=== PATIENT | female | born 1940 | race African-American/Black ===

== ENCOUNTER 2024-11-12 11:29 | Inpatient (IN) ==
[2024-11-12] MEDS: NITROGLYCERIN 1 GM OINT...G. TD ONE (11:51)
--- NOTE | 2024-11-12 11:56 | Emergency Department Note ---
HPI - General Adult General Chief complaint: Extremity Injury, Lower Stated complaint: SWOLLEN HAND Time Seen by Provider: 11/12/24 11:47 Source: patient and family Source information: patient and daughter Mode of arrival: History of Present Illness HPI narrative: This is a 84 year old female patient that presents to the ER with c/o SOB with exertion, chest tightness with exertion, left arm and leg swollen and painful with a hx of CVA. Patient denies any abdominal pain, back pain, fever, chills, numbness, tingling, weakness or N/V/D Location: Reports chest Radiation: Reports non-radiation Severity: mild Quality: Reports dull Pain Consistency: Reports intermittent Relieving factors: Reports none Exacerbating factors: Reports none Associated symptoms: Reports chest pain (tightness) and shortness of breath Treatments prior to arrival: Reports none Related Data Allergies Allergy/AdvReac Type Severity Reaction Status Date / Time codeine Allergy Verified 11/12/24 11:41 Penicillins Allergy Verified 11/12/24 11:41 Review of Systems Status of ROS 10 or more systems reviewed and unremark able except as noted in history and below Constitutional Denies: fever, chills, change in weight, fatigue, malaise, night sweats or change in sleep pattern Eyes Denies: change in vision, blurry vision, blind spots, light sensitivity or eye discomfort Ears, nose, mouth, and throat Denies: throat pain, neck pain, throat swelling, difficulty swallowing, hoarseness, mouth pain, swelling of lips/tongue or dry mouth Cardiovascular Reports: chest pain and edema (left arm and leg ); Denies: palpitations, swelling of feet/ankles, lightheadedness, shortness of breath with exertion or shortness of breath when lying down Respiratory Reports: shortness of breath; Denies: cough, wheezing, stridor, pain on inspiration, change in phlegm color or coughing up blood Gastrointestinal Denies: abdominal pain, nausea, vomiting, coffee grounds in vomit, heartburn, diarrhea, constipation, bloating, difficulty swallowing, feeling full early, change in bowel habits, painful bowel movements or rectal pain Genitourinary Denies: painful urination, urinary frequency, urinary urgency, urinary incontinence, blood in urine or difficulty voiding Musculoskeletal Reports: extremity pain (left arm and leg) and extremity swelling (left arm and leg); Denies: back pain, neck pain, joint pain, limited range of motion or joint swelling Integumentary/Breast Denies: rash, itching, redness, skin pain, skin tenderness, skin swelling or sores Neurological Denies: headache, numbness in extremities, weakness in extremities, lack of coordination, dizziness or vertigo Psychiatric Denies: anxiety, mood swings, panic attacks, change in sleep pattern, hopelessness, loss of interest or irritability Endocrine Denies: excessive urination, excessive thirst, fatigue, cold intolerance or excessive sweating Hematologic/Lymphatic Denies: easy bruising, easy bleeding or enlarged lymph nodes Allergic/Immunologic Denies: hives, throat swelling, tongue swelling, facial swelling or wheezing PFSH PFSH Medical History (Updated 11/12/24 @ 11:47 by Sudha Cisse RN) Diabetes Hypertension Surgical History (Updated 11/12/24 @ 11:47 by Sudha Cisse, RN) H/O heart artery stent H/O: hysterectomy Exam Constitutional: normal general appearance and no apparent distress Vital Signs - 24 hr 11/12/24 11:39 11/12/24 11:51 11/12/24 14:43 Temperature 98.0 F Pulse Rate 113 H Respiratory Rate 18 Blood Pressure 148/76 148/76 156/76 Pulse Oximetry 96 Oxygen Delivery Me thod Room Air HENMT: normocephalic, head/scalp atraumatic, hearing grossly normal bilaterally, external ears normal, EACs normal, nasal mucous membranes normal, external nose normal, oral mucous membranes normal and oropharynx normal Eyes: PERRL, EOMs intact bilaterally, conjunctivae normal, no scleral icterus and no papilledema Neck/C-Spine: visual inspection normal and trachea midline Lymph: no lymphadenopathy noted Chest: inspection of chest normal and palpation of chest normal Respiratory: breath sounds equal bilaterally, normal respiratory effort, clear to auscultation bilaterally, no wheezes, no rales, no retractions, no use of accessory muscles and chest percussion normal Cardiovascular: normal heart rate noted, regular rhythm noted, no gallop, no rub, no murmur, no JVD, no clicks, peripheral pulses 2+ throughout, no bruits noted and no additional abnormal heart sounds Gastrointestinal: abdomen normal to inspection, abdomen soft to palpation, nontender to palpation, nontender to percussion, nondistended, normoactive bowel sounds, no hepatosplenomegaly, no masses, no pulsatile mass, no ascites and no hernia Genitourinary: no CVA tenderness Back/Pelvis: spine normal to inspection Extremities: abnormal to inspection, normal to palpation, no tenderness and full ROM (for pt, 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) Neurology: dramatic director II-XII intact, no movement abnormality noted (normal for patient hx of CVA with left sided weakness from CVA), no focal motor deficit noted (normal for patient hx of CVA with left sided weakness from CVA), no sensory deficits noted, gait normal (normal for patient hx of CVA with left sided weakness from CVA), speech normal, coordination normal (normal for patient hx of CVA with left sided weakness from CVA), no pronator drift noted, no fasciculations noted and GCS normal Psychiatry: mental status grossly normal, oriented x3, thought process normal, cooperative and affect normal Skin: skin color normal Course Course Hospital Course: 1442: Due to patients ongoing demand for need for oxygen to keep O2 sats greater than 92% will admit patient to the hospital for further evaluation and treatment. No s/s of acute distress noted Vital Signs Vital signs: Vital Signs Temperature 98.0 F 11/12/24 11:39 Pulse Rate 113 H 11/12/24 11:39 Respiratory Rate 18 11/12/24 11:39 Blood Pressure 148/76 11/12/24 11:39 Pulse Oximetry 96 11/12/24 11:39 Oxygen Delivery Method Room Air 11/12/24 11:39 Temperature 98.0 F 11/12/24 11:39 Pulse Rate 113 H 11/12/24 11:39 Respiratory Rate 18 11/12/24 11:39 Blood Pressure 156/76 11/12/24 14:43 Pulse Oximetry 96 11/12/24 11:39 Oxygen Delivery Method Room Air 11/12/24 11:39 Medical Decision Making Differential Diagnosis Differential Diagnosis: viral illness, URI, CHF Medical Records Medical records reviewed: Yes I reviewed the patient's medical records Lab Data Lab results reviewed: Yes I reviewed the patient's lab results Labs: Lab Results 11/12/24 11/12/24 Range/Units 12:00 12:05 WBC 9.5 H (4.3-9.3) K/uL RBC 3.0 L (4.00-5.50) M/uL Hgb 9.0 L (12.5-15.8) gm/dL Hct 26.6 L (35.9-46.7) % MCV 90.0 (81.0-93.7) fl MCH 30.4 (27.6-32.2) pg MCHC 33.8 (33.1-35.3) g/dl RDW 16.8 H (11.4-14.2) % Plt Count 323 (152-353) K/uL MPV 8.4 (6.9-10.8) fl Gran % 67.9 (47.8-71.3) % Lymph % (Auto) 13.8 L (20.0-43.0) % [place] % (Auto) 7.1 (3.6-9.8) % Eos % (Auto) 10.3 H (0.4-2.8) % Baso % (Auto) 0.9 H (0.1-0.85) Lymph # (Auto) 1.3 (1.1-3.1) [place] # (Auto) 0.7 L (1.1-3.1) Eos # (Auto) 1.0 H (0.0-0.2) Baso # (Auto) 0.1 (0.0-0.1) Absolute Gran (auto) 6.4 H (2.3-6.0) D-Dimer 1500 H (100-600) ng/mL Sodium 141 (136-145) mmol/L Potassium 4.0 (3.6-5.2) mmol/L Chloride 104.0 (98-107) mmol/L Carbon Dioxide 25 (21-32) mmol/L Anion Gap 12.0 (4-14) mEq/L BUN 10 (7-18) mg/dL Creatinine 1.0 (0.6-1.3) mg/dL Estimated GFR 55.6 (>59.9) Glucose 159 H (70-110) mg/dL Calcium 8.9 (8.5-10.1) mg/dL Total Bilirubin 0.54 (0.0-1.0) mg/dL AST 33 (15-37) U/L ALT 28 L (30-65) U/L Alkaline Phosphatase 109 (50-136) U/L Troponin I High Sens 6.10 (4.0-60.4) ng/L B-Natriuretic Peptide 287.0 H (0-100) pg/mL Total Protein 7.7 (6.4-8.2) g/dL Albumin 3.3 L (3.4-5.0) g/dL Urine Color Yellow (STRAW/YELL.) Urine Appearance Cloudy (CLEAR) Ur Specific [place] 1.020 (1.001-1.035) Urine Protein Trace (NEGATIVE) Urine Glucose (UA) Normal (NORMAL) Urine Ketones Negative (NEGATIVE) Urine Occult Blood Negative (NEG - TRACE) Urine Nitrite Positive (NEGATIVE) Urine Bilirubin Negative (NEGATIVE) Urine Urobilinogen Normal (NORMAL) Ur Leukocyte Esterase Positive (NEGATIVE) Urine RBC Negative (0 - 5) Urine WBC 10 - 25 ( 0 - 5) Ur Epithelial Cells Few (Few/HPF) Amorphous Sediment Negative (Negative) Urine Bacteria Many (Negative) Urine Mucus Negative (Negative) Urine Trichomonas Negative (Negative) Urine Yeast Negative (Negative) Fluid pH 6.5 (5 - 9) Imaging Data Chest x-ray: Attestation: I have reviewed the pertinent imaging results. ECG Data Attestation: I have reviewed the pertinent ECG results. Discharge Plan Discharge Patient Disposition: Admitted As Observation Condition: Stable Clinical Impression: Acute exacerbation of CHF (congestive heart failure), Hypoxia, Dyspnea, Edema, Acute UTI Time of Disposition: 14:46
[2024-11-12 12:27] LABS: PH BODY FLUID EXCP BLOOD 6.5 (5 - 9); Urine Appearance CLOUDY (CLEAR); Urine Blood NEGATIVE (NEG - TRACE); Urine Color YELLOW (STRAW/YELL.); Urine Urobilinogen Normal (NORMAL)
[2024-11-12 12:29] LABS: Urine Amorphous Sediment Negative (Negative); Urine Yeast Negative (Negative)
[2024-11-12 12:36] LABS: Basophils #(Absolute) Auto 0.1 (0.0-0.1); Basophils%(Percent) Auto 0.9 (0.1-0.85); Eosinophils%(Percent) Auto 10.3 % (0.4-2.8); Granulocytes % - Auto 67.9 % (47.8-71.3); Granulocytes#(Absolute)- Auto 6.4 (2.3-6.0); Hematocrit 26.6 % (35.9-46.7); Monocytes #(Absolute)- Auto 0.7 (1.1-3.1); Monocytes %(Percent)- Auto 7.1 % (3.6-9.8); Platelet Count 323 K/uL (152-353); White Blood Count 9.5 K/uL (4.3-9.3)
[2024-11-12] MEDS: FUROSEMIDE 20 MG/2 ML VIAL IV ONE (14:43)
[2024-11-12] MEDS: LEVOFLOXACIN/D5W 500 MG/100 ML 500 MG/100 ML PIGGYBACK IV STA (14:44)
[2024-11-12] MEDS ORDERED: bisacodyL 10 MG SUPP.RECT PR PRN (15:54)
[2024-11-12] MEDS ORDERED: MAGNESIUM, ALUMINUM HYDROXIDE 30 ML ORAL.SUSP PO PRN (15:54)
[2024-11-12] MEDS: ACETAMINOPHEN 500 MG TABLET PO PRN (20:16)
[2024-11-12] MEDS: ENOXAPARIN SODIUM 40 MG/0.4 ML SYRINGE SUBQ ONE (23:52)
[2024-11-13] MEDS: TRAMADOL HCL 50 MG TABLET PO PRN (01:28)
[2024-11-13 06:11] LABS: Basophils #(Absolute) Auto 0.1 (0.0-0.1); Eosinophils#(Absolute)Auto 0.7 (0.0-0.2); Eosinophils%(Percent) Auto 7.1 % (0.4-2.8); Granulocytes % - Auto 70.7 % (47.8-71.3); Granulocytes#(Absolute)- Auto 7.2 (2.3-6.0); Hematocrit 26.9 % (35.9-46.7); Mean Corpuscular Volume 88.7 fl (81.0-93.7); Monocytes #(Absolute)- Auto 0.8 (1.1-3.1); Platelet Count 351 K/uL (152-353); White Blood Count 10.2 K/uL (4.3-9.3)
[2024-11-13 07:41] LABS: Potassium 3.6 mmol/L (3.6-5.2)
--- NOTE | 2024-11-13 08:31 | Internal Medicine H&P ---
Internal Medicine - H&P: HPI History of Present Illness Chief complaint: CHF EXACERBATION, HPOXIA, UTI, DYSPNEA Narrative: Admitted from home via ER due to worsening swelling of her LEFT arm and leg. Had stroke with hemiplegia affecting her left side before 2023. Has been noticing the increased edema this week with dyspnea. ER found her to be in CHF exacerbation and fighting a UTI. Daughter and patient report she seems to be doing better today. Still not back to her new baseline. Nurses report very good UOP, but not accurately recorded. Review of Systems Status of ROS 10 or more systems reviewed and unremark able except as noted in history and below Constitutional Denies: fever, chills, change in weight, fatigue, malaise, night sweats or change in sleep pattern Eyes Denies: change in vision, blurry vision, blind spots, light sensitivity or eye discomfort Ears, nose, mouth, and throat Denies: throat pain, neck pain, throat swelling, difficulty swallowing, hoarseness, mouth pain, swelling of lips/tongue, dry mouth or vertigo Cardiovascular Reports: chest pain, edema (left arm and leg ) and shortness of breath with exertion; Denies: palpitations, swelling of feet/ankles, lightheadedness or shortness of breath when lying down Respiratory Reports: shortness of breath; Denies: cough, wheezing, stridor, pain on inspiration, change in phlegm color or coughing up blood Gastrointestinal Denies: abdominal pain, nausea, vomiting, coffee grounds in vomit, heartburn, diarrhea, constipation, bloating, difficulty swallowing, feeling full early, change in bowel habits, painful bowel movements or rectal pain Genitourinary Denies: painful urination, urinary frequency, urinary urgency, urinary incontinence, blood in urine or difficulty voiding Musculoskeletal Reports: extremity pain (left arm and leg) and extremity swelling (left arm and leg); Denies: back pain, neck pain, joint pain, limited range of motion or joint swelling Integumentary/Breast Denies: rash, itching, redness, skin pain, skin tenderness, skin swelling or sores Neurological Denies: headache, numbness in extremities, weakness in extremities, lack of coordination, dizziness or vertigo Psychiatric Denies: anxiety, mood swings, panic attacks, change in sleep pattern, hopelessness, loss of interest or irritability Endocrine Denies: excessive urination, excessive thirst, fatigue, cold intolerance or excessive sweating Hematologic/Lymphatic Denies: easy bruising, easy bleeding or enlarged lymph nodes Allergic/Immunologic Denies: hives, throat swelling, tongue swelling, facial swelling or wheezing [facility] Medical History (Updated 11/13/24 @ 11:50 by Grover Cuba MD) CVA (cerebral vascular accident) Diabetes Hypertension Surgical History (Updated 11/12/24 @ 11:47 by Sudha Cisse RN) H/O heart artery stent H/O: hysterectomy Social History Problems where you live: no known problems Highest level of school completed/degree received: high school Meds Home Medications and Allergies Home Medications Medication Instructions Recorded Confirmed Type amitriptyline 25 mg tablet 25 mg PO BEDTIME 11/12/24 11/12/24 History amlodipine 5 mg tablet 5 mg PO BID 11/12/24 11/12/24 History atorvastatin 80 mg tablet 80 mg PO BEDTIME 11/12/24 11/12/24 History buspirone 7.5 mg tablet 7.5 mg PO BID 11/12/24 11/12/24 History carvedilol 12.5 mg tablet 12.5 mg PO BID 11/12/24 11/12/24 History cilostazol 100 mg tablet 100 mg PO BID 11/12/24 11/12/24 History clonidine 0.3 mg/24 hr weekly 1 patch topical Q7D 11/12/24 11/12/24 History transdermal patch clopidogrel 75 mg tablet 75 mg PO DAILY 11/12/24 11/12/24 History ezetimibe 10 mg tablet 10 mg PO DAILY 11/12/24 11/12/24 History glipizide 10 mg tablet 10 mg PO BIDWM 11/12/24 11/12/24 History hydralazine 100 mg tablet mg 11/12/24 History insulin degludec 200 unit/mL (3 unit subcut 11/12/24 History mL) subcutaneous pen (Tresiba FlexTouch U-200 insulin) labetalol 100 mg tablet mg 11/12/24 History meloxicam 15 mg tablet 15 mg PO DAILY 11/12/24 11/12/24 History sitagliptin phosphate 25 mg tablet mg 11/12/24 History (Januvia) Allergies Allergy/AdvReac Type Severity Reaction Status Date / Time codeine Allergy Hives Verified 11/12/24 16:49 Penicillins Allergy Hives Verified 11/12/24 16:49 Exam Constitutional: normal general appearance, no apparent distress, abnormal body habitus (obese), no limitations and alert Vital Signs - 24 hr 11/12/24 11:39 11/12/24 11:51 11/12/24 12:30 Temperature 98.0 F Pulse Rate 113 H 110 H Pulse Rate [Left] Respiratory Rate 18 20 Blood Pressure 148/76 148/76 159/85 Blood Pressure [Ri ght Arm] Pulse Oximetry 96 94 L Oxygen Delivery Me thod Room Air Nasal Cannula Oxygen Flow Rate 2 11/12/24 13:01 11/12/24 14:00 11/12/24 14:43 Temperature Pulse Rate 112 H 111 H Pulse Rate [Left] Respiratory Rate 18 18 Blood Pressure 154/69 156/76 156/76 Blood Pressure [Ri ght Arm] Pulse Oximetry 95 98 Oxygen Delivery Me thod Nasal Cannula Room Air Oxygen Flow Rate 2 2 11/12/24 15:21 11/12/24 15:45 11/12/24 16:12 Temperature 98.0 F Pulse Rate 117 H 117 H Pulse Rate [Left] Respiratory Rate 18 18 Blood Pressure 151/84 151/84 Blood Pressure [Ri ght Arm] Pulse Oximetry 99 98 98 Oxygen Delivery Me thod Nasal Cannula Room Air Oxygen Flow Rate 2 11/12/24 20:00 11/12/24 21:30 11/13/24 00:00 Temperature 98.0 F 99.3 F Pulse Rate Pulse Rate [Left] 131 H 130 H 129 H Respiratory Rate 16 18 Blood Pressure Blood Pressure [Ri ght Arm] 155/69 Pulse Oximetry 88 L 99 92 L Oxygen Delivery Me thod Room Air Room Air Room Air Oxygen Flow Rate 11/13/24 04:00 11/13/24 08:00 Temperature 98.2 F 99.0 F Pulse Rate Pulse Rate [Left] 134 H 128 H Respiratory Rate 16 23 Blood Pressure Blood Pressure [Ri ght Arm] 133/73 175/83 Pulse Oximetry 91 L 93 L Oxygen Delivery Me thod Room Air Room Air Oxygen Flow Rate HENMT: normocephalic, head/scalp atraumatic, hearing grossly normal bilaterally and external ears normal Eyes: PERRL, EOMs intact bilaterally and conjunctivae normal Neck/C-Spine: visual inspection normal, trachea midline and cervical full ROM noted Respiratory: breath sounds equal bilaterally, normal respiratory effort and clear to auscultation bilaterally Cardiovascular: normal heart rate noted, regular rhythm noted and no murmur Gastrointestinal: abdomen soft to palpation, nontender to palpation, nondistended and normoactive bowel sounds Back/Pelvis: thoracic spine ROM normal and lumbar spine ROM normal Extremities: 1+ pitting edema of BLE and LUE with LEF T>right Neurology: manpower development advisor II-XII intact, speech normal and no fasciculations noted Psychiatry: mental status grossly normal, oriented x3, thought process normal, cooperative, affect normal and memory normal Internal Medicine - H&P: Reslt Labs Labs: CBC WBC 10.2 K/uL (4.3-9.3) H 11/13/24 05:50 RBC 3.0 M/uL (4.00-5.50) L 11/13/24 05:50 Hgb 9.2 gm/dL (12.5-15.8) L 11/13/24 05:50 Hct 26.9 % (35.9-46.7) L 11/13/24 05:50 MCV 88.7 fl (81.0-93.7) 11/13/24 05:50 MCH 30.4 pg (27.6-32.2) 11/13/24 05:50 MCHC 34.2 g/dl (33.1-35.3) 11/13/24 05:50 RDW 16.9 % (11.4-14.2) H 11/13/24 05:50 Plt Count 351 K/uL (152-353) 11/13/24 05:50 MPV 8.6 fl (6.9-10.8) 11/13/24 05:50 Gran % 70.7 % (47.8-71.3) 11/13/24 05:50 Lymph % (Auto) 13.2 % (20.0-43.0) L 11/13/24 05:50 [place] % (Auto) 8.0 % (3.6-9.8) 11/13/24 05:50 Eos % (Auto) 7.1 % (0.4-2.8) H 11/13/24 05:50 Baso % (Auto) 1.0 (0.1-0.85) H 11/13/24 05:50 Lymph # (Auto) 1.3 (1.1-3.1) 11/13/24 05:50 [place] # (Auto) 0.8 (1.1-3.1) L 11/13/24 05:50 Eos # (Auto) 0.7 (0.0-0.2) H 11/13/24 05:50 Baso # (Auto) 0.1 (0.0-0.1) 11/13/24 05:50 Absolute Gran (auto) 7.2 (2.3-6.0) H 11/13/24 05:50 BMP Sodium 141 mmol/L (136-145) 11/13/24 05:50 Potassium 3.6 mmol/L (3.6-5.2) 11/13/24 05:50 Chloride 101.0 mmol/L (98-107) 11/13/24 05:50 Carbon Dioxide 32 mmol/L (21-32) 11/13/24 05:50 Anion Gap 8.0 mEq/L (4-14) 11/13/24 05:50 BUN 8 mg/dL (7-18) 11/13/24 05:50 Creatinine 0.9 mg/dL (0.6-1.3) 11/13/24 05:50 Estimated GFR 63.0 (>59.9) 11/13/24 05:50 Glucose 143 mg/dL (70-110) H 11/13/24 05:50 Calcium 8.9 mg/dL (8.5-10.1) 11/13/24 05:50 Total Bilirubin 0.78 mg/dL (0.0-1.0) 11/13/24 05:50 AST 21 U/L (15-37) 11/13/24 05:50 ALT 20 U/L (30-65) L 11/13/24 05:50 Alkaline Phosphatase 99 U/L (50-136) 11/13/24 05:50 Total Protein 7.6 g/dL (6.4-8.2) 11/13/24 05:50 Albumin 3.2 g/dL (3.4-5.0) L 11/13/24 05:50 Cardiac Enzymes Troponin I High Sens 6.10 ng/L (4.0-60.4) 11/12/24 12:05 Liver Function Total Bilirubin 0.78 mg/dL (0.0-1.0) 11/13/24 05:50 AST 21 U/L (15-37) 11/13/24 05:50 ALT 20 U/L (30-65) L 11/13/24 05:50 Alkaline Phosphatase 99 U/L (50-136) 11/13/24 05:50 Total Protein 7.6 g/dL (6.4-8.2) 11/13/24 05:50 Albumin 3.2 g/dL (3.4-5.0) L 11/13/24 05:50 Urine Urine Color Yellow (STRAW/YELL.) 11/12/24 12:00 Urine Appearance Cloudy (CLEAR) 11/12/24 12:00 Ur Specific [place] 1.020 (1.001-1.035) 11/12/24 12:00 Urine Protein Trace (NEGATIVE) 11/12/24 12:00 Urine Glucose (UA) Normal (NORMAL) 11/12/24 12:00 Urine Ketones Negative (NEGATIVE) 11/12/24 12:00 Urine Occult Blood Negative (NEG - TRACE) 11/12/24 12:00 Urine Nitrite Positive (NEGATIVE) 11/12/24 12:00 Urine Bilirubin Negative (NEGATIVE) 11/12/24 12:00 Urine Urobilinogen Normal (NORMAL) 11/12/24 12:00 Ur Leukocyte Esterase Positive (NEGATIVE) 11/12/24 12:00 Assessment and Plan Assessment and Plan (1) Sepsis: Qualifiers: Sepsis type: sepsis due to unspecified organism Sepsis acute organ dysfunction status: without acute organ dysfunction Qualified Code(s): A41.9 - Sepsis, unspecified organism Code(s): A41.9 - Sepsis, unspecified organism (2) Urinary tract infection: Qualifiers: Urinary tract infection type: acute cystitis Hematuria presence: without hematuria Qualified Code(s): N30.00 - Acute cystitis without hematuria Code(s): N39.0 - Urinary tract infection, site not specified (3) Hemiplegia of left nondominant side as late effect of cerebral infarction: Qualifiers: Hemiplegia type: flaccid Qualified Code(s): I69.354 - Hemiplegia and hemiparesis following cerebral infarction affecting left non-dominant side Code(s): I69.354 - Hemiplegia and hemiparesis following cerebral infarction affecting left non-dominant side Plan Gentle hydration with diuresis. IV Rocephin. Supportive care. Pt responding very well.
[2024-11-13] MEDS: FUROSEMIDE 20 MG/2 ML VIAL IV SCH (09:25)
[2024-11-13] MEDS: LEVOFLOXACIN/D5W 500 MG/100 ML 500 MG/100 ML PIGGYBACK IV SCH (16:05)
[2024-11-13] MEDS: carvediloL 25 MG TABLET PO SCH (17:12)
[2024-11-13] MEDS: ENOXAPARIN SODIUM 40 MG/0.4 ML SYRINGE SUBQ SCH (21:22)
[2024-11-13] MEDS: AMITRIPTYLINE HCL 10 MG TABLET PO ONE (22:18)
[2024-11-13] MEDS: BUSPIRONE HCL 15 MG TABLET ONE (22:19)
[2024-11-14] MEDS: LABETALOL HCL 5 MG/ML INJ ONE (03:34)
[2024-11-14 05:42] LABS: Basophils #(Absolute) Auto 0.1 (0.0-0.1); Basophils%(Percent) Auto 1.1 (0.1-0.85); Eosinophils#(Absolute)Auto 0.6 (0.0-0.2); Granulocytes % - Auto 67.8 % (47.8-71.3); Granulocytes#(Absolute)- Auto 6.8 (2.3-6.0); Hematocrit 29.4 % (35.9-46.7); Mean Corpuscular Volume 89.2 fl (81.0-93.7); Monocytes #(Absolute)- Auto 0.8 (1.1-3.1); Monocytes %(Percent)- Auto 7.9 % (3.6-9.8); Platelet Count 377 K/uL (152-353); White Blood Count 10.1 K/uL (4.3-9.3)
[2024-11-14 05:58] LABS: Potassium 3.9 mmol/L (3.6-5.2)
[2024-11-14] MEDS: CLOPIDOGREL BISULFATE 75 MG TABLET PO SCH (12:20)
[2024-11-14] MEDS: CLONIDINE 0.3 MG/24 HR TOPICAL SCH (12:20)
[2024-11-14] MEDS: MAGNESIUM OXIDE 400 MG TABLET PO ONE (12:20)
[2024-11-14] MEDS: AMLODIPINE BESYLATE 5 MG TABLET PO SCH (12:20)
[2024-11-14] MEDS: PANTOPRAZOLE SODIUM 40 MG TABLET.DR PO SCH (12:20)
[2024-11-14] MEDS: EZETIMIBE 10 MG TABLET PO SCH (12:20)
[2024-11-14] MEDS: cilostazoL 100 MG TABLET PO SCH (12:20)
[2024-11-14] MEDS: 0.9 % SODIUM CHLORIDE 500 ML IV ONE ×2 (15:00→16:30)
[2024-11-14] MEDS: carvediloL 6.25 MG TABLET PO SCH (16:27)
[2024-11-14] MEDS: 0.9 % SODIUM CHLORIDE 1000 ML 1,000 ML IV SCH (16:29)
[2024-11-14] MEDS ORDERED: GLIPIZIDE 10 MG PO SCH (16:30)
[2024-11-14] MEDS: GLIMEPIRIDE 2 MG TABLET PO SCH (16:31)
[2024-11-14] MEDS: METOPROLOL TARTRATE 5 MG/5 ML VIAL INJ ONE ×2 (21:42→21:47)
[2024-11-14] MEDS ORDERED: BUSPIRONE HCL 15 MG TABLET PO ONE (22:00)
[2024-11-14] MEDS: BUSPIRONE HCL 5 MG TABLET PO SCH (23:03)
[2024-11-14] MEDS: APIXABAN 2.5 MG TABLET PO SCH (23:03)
[2024-11-14] MEDS: ATORVASTATIN CALCIUM 40 MG TABLET PO SCH (23:03)
[2024-11-14] MEDS: MELATONIN 5 MG TABLET PO ONE ×2 (23:53)
[2024-11-15 04:48] LABS: Basophils #(Absolute) Auto 0.1 (0.0-0.1); Basophils%(Percent) Auto 1.1 (0.1-0.85); Eosinophils#(Absolute)Auto 0.7 (0.0-0.2); Eosinophils%(Percent) Auto 8.6 % (0.4-2.8); Granulocytes % - Auto 56.3 % (47.8-71.3); Granulocytes#(Absolute)- Auto 4.7 (2.3-6.0); Hematocrit 26.1 % (35.9-46.7); Mean Corpuscular Volume 88.3 fl (81.0-93.7); Monocytes #(Absolute)- Auto 0.9 (1.1-3.1); Monocytes %(Percent)- Auto 11.4 % (3.6-9.8); Platelet Count 340 K/uL (152-353); White Blood Count 8.3 K/uL (4.3-9.3)
[2024-11-15 05:25] LABS: Potassium 3.4 mmol/L (3.6-5.2)
--- NOTE | 2024-11-15 09:38 | Progress Note ---
Progress Note: Subjective Subjective Interval history: Day two of hospital stay, nurse reports patient has been hallucinating at times, thinks her brother is under her bed and verbalizes she is having a seizure. Nursing staff reports she has not had a seizure but thinks she is, she has called her family through the night to tell them she is currently having a seizure. Patient has been going in and out of A-Fib since admission to the med/surg floor. Urine culture shows UTI with E.Coli. Exam Exam: Patient in pratt's position upon entering room. Alert and oriented with family members at bedside. Constitutional: abnormal general appearance (chronically ill), no apparent distress, abnormal body habitus (obese), limitations noted (altered mental status) (intermittently) and alert Vital Signs - 24 hr 11/13/24 17:12 11/13/24 20:00 11/13/24 20:22 Temperature 99.2 F Pulse Rate 130 H Pulse Rate [Left D orsalis Pedis] Pulse Rate [Left] 106 H Respiratory Rate 24 Blood Pressure Blood Pressure [Ri ght Arm] 161/93 Pulse Oximetry 93 L 97 Oxygen Delivery Me thod Room Air Nasal Cannula Oxygen Flow Rate 2 Fraction of Inspir ed Oxygen 28 11/13/24 23:51 11/14/24 03:34 11/14/24 04:00 Temperature 98.9 F 98.9 F Pulse Rate 130 H Pulse Rate [Left D orsalis Pedis] Pulse Rate [Left] 102 H 128 H Respiratory Rate 18 18 Blood Pressure 224/109 Blood Pressure [Ri ght Arm] 146/81 158/90 Pulse Oximetry 96 95 Oxygen Delivery Me thod Room Air Room Air Oxygen Flow Rate Fraction of Inspir ed Oxygen 11/14/24 04:57 11/14/24 08:00 11/14/24 12:00 Temperature 98.4 F 98 F Pulse Rate 128 H Pulse Rate [Left D orsalis Pedis] 132 H 132 H Pulse Rate [Left] 19 L 19 L Respiratory Rate 96 H Blood Pressure 158/90 Blood Pressure [Ri ght Arm] 114/65 153/76 Pulse Oximetry 97 Oxygen Delivery Me thod Room Air Room Air Oxygen Flow Rate Fraction of Inspir ed Oxygen 11/14/24 12:00 Temperature Pulse Rate Pulse Rate [Left D orsalis Pedis] Pulse Rate [Left] Respiratory Rate Blood Pressure 153/76 Blood Pressure [Ri ght Arm] Pulse Oximetry Oxygen Delivery Me thod Oxygen Flow Rate Fraction of Inspir ed Oxygen HENMT: normocephalic, head/scalp atraumatic, hearing grossly normal bilaterally, external ears normal, EACs normal, nasal mucous membranes normal, external nose normal, oral mucous membranes normal and oropharynx normal Eyes: PERRL, EOMs intact bilaterally, conjunctivae normal, no scleral icterus and no papilledema Neck/C-Spine: visual inspection normal, trachea midline and cervical full ROM noted Lymph: no lymphadenopathy noted Chest: inspection of chest normal and palpation of chest normal Respiratory: breath sounds equal bilaterally, normal respiratory effort, clear to auscultation bilaterally, no wheezes, no rales, no retractions, no use of accessory muscles and chest percussion normal Cardiovascular: normal heart rate noted, regular rhythm noted, no gallop, no rub, no murmur, no JVD, no clicks, peripheral pulses 2+ throughout, no bruits noted and no additional abnormal heart sounds Gastrointestinal: abdomen normal to inspection, abdomen soft to palpation, nontender to palpation, nontender to percussion, nondistended, normoactive bowel sounds, no hepatosplenomegaly, no masses, no pulsatile mass, no ascites and no hernia Genitourinary: no CVA tenderness Back/Pelvis: spine normal to inspection, thoracic spine ROM normal and lumbar spine ROM normal Extremities: abnormal to inspection, normal to palpation, no tenderness and full ROM (for pt, 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) 1+ pitting edema of BLE and LUE with LEF T>right 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, no movement abnormality noted (normal for patient hx of CVA with left sided weakness from CVA), no focal motor deficit noted (normal for patient hx of CVA with left sided weakness from CVA), no sensory deficits noted, gait normal (normal for patient hx of CVA with left sided weakness from CVA), speech normal, coordination normal (normal for patient hx of CVA with left sided weakness from CVA), no pronator drift noted, no f asciculations noted and GCS normal Psychiatry: mental status grossly normal, oriented x3, thought process normal, cooperative, affect normal and memory normal Skin: skin color normal Progress Note: Objective Labs Labs: CBC WBC 10.1 K/uL (4.3-9.3) H 11/14/24 05:30 RBC 3.3 M/uL (4.00-5.50) L 11/14/24 05:30 Hgb 10.1 gm/dL (12.5-15.8) L 11/14/24 05:30 Hct 29.4 % (35.9-46.7) L 11/14/24 05:30 MCV 89.2 fl (81.0-93.7) 11/14/24 05:30 MCH 30.6 pg (27.6-32.2) 11/14/24 05:30 MCHC 34.3 g/dl (33.1-35.3) 11/14/24 05:30 RDW 16.9 % (11.4-14.2) H 11/14/24 05:30 Plt Count 377 K/uL (152-353) H 11/14/24 05:30 MPV 7.8 fl (6.9-10.8) 11/14/24 05:30 Gran % 67.8 % (47.8-71.3) 11/14/24 05:30 Lymph % (Auto) 17.2 % (20.0-43.0) L 11/14/24 05:30 [place] % (Auto) 7.9 % (3.6-9.8) 11/14/24 05:30 Eos % (Auto) 6.0 % (0.4-2.8) H 11/14/24 05:30 Baso % (Auto) 1.1 (0.1-0.85) H 11/14/24 05:30 Lymph # (Auto) 1.7 (1.1-3.1) 11/14/24 05:30 [place] # (Auto) 0.8 (1.1-3.1) L 11/14/24 05:30 Eos # (Auto) 0.6 (0.0-0.2) H 11/14/24 05:30 Baso # (Auto) 0.1 (0.0-0.1) 11/14/24 05:30 Absolute Gran (auto) 6.8 (2.3-6.0) H 11/14/24 05:30 BMP Sodium 137 mmol/L (136-145) 11/14/24 05:30 Potassium 3.9 mmol/L (3.6-5.2) 11/14/24 05:30 Chloride 98.0 mmol/L (98-107) 11/14/24 05:30 Carbon Dioxide 30 mmol/L (21-32) 11/14/24 05:30 Anion Gap 9.0 mEq/L (4-14) 11/14/24 05:30 BUN 8 mg/dL (7-18) 11/14/24 05:30 Creatinine 1.0 mg/dL (0.6-1.3) 11/14/24 05:30 Estimated GFR 55.6 (>59.9) 11/14/24 05:30 Glucose 194 mg/dL (70-110) H 11/14/24 05:30 Calcium 8.9 mg/dL (8.5-10.1) 11/14/24 05:30 Phosphorus 3.2 mg/dL (2.5-4.9) 11/14/24 05:30 Magnesium 1.6 mg/dL (1.8-2.4) L 11/14/24 05:30 Total Bilirubin 0.67 mg/dL (0.0-1.0) 11/14/24 05:30 AST 21 U/L (15-37) 11/14/24 05:30 ALT 19 U/L (30-65) L 11/14/24 05:30 Alkaline Phosphatase 96 U/L (50-136) 11/14/24 05:30 Total Protein 8.0 g/dL (6.4-8.2) 11/14/24 05:30 Albumin 3.2 g/dL (3.4-5.0) L 11/14/24 05:30 Cardiac Enzymes Troponin I High Sens 6.10 ng/L (4.0-60.4) 11/12/24 12:05 Liver Function Total Bilirubin 0.67 mg/dL (0.0-1.0) 11/14/24 05:30 AST 21 U/L (15-37) 11/14/24 05:30 ALT 19 U/L (30-65) L 11/14/24 05:30 Alkaline Phosphatase 96 U/L (50-136) 11/14/24 05:30 Total Protein 8.0 g/dL (6.4-8.2) 11/14/24 05:30 Albumin 3.2 g/dL (3.4-5.0) L 11/14/24 05:30 Urine Urine Color Yellow (STRAW/YELL.) 11/12/24 12:00 Urine Appearance Cloudy (CLEAR) 11/12/24 12:00 Ur Specific [place] 1.020 (1.001-1.035) 11/12/24 12:00 Urine Protein Trace (NEGATIVE) 11/12/24 12:00 Urine Glucose (UA) Normal (NORMAL) 11/12/24 12:00 Urine Ketones Negative (NEGATIVE) 11/12/24 12:00 Urine Occult Blood Negative (NEG - TRACE) 11/12/24 12:00 Urine Nitrite Positive (NEGATIVE) 11/12/24 12:00 Urine Bilirubin Negative (NEGATIVE) 11/12/24 12:00 Urine Urobilinogen Normal (NORMAL) 11/12/24 12:00 Ur Leukocyte Esterase Positive (NEGATIVE) 11/12/24 12:00 Progress Note: A&P Assessment and Plan (1) Sepsis: Qualifiers: Sepsis acute organ dysfunction status: without acute organ dysfunction Sepsis type: sepsis due to unspecified organism Qualified Code(s): A41.9 - Sepsis, unspecified organism (2) Atrial fibrillation: Qualifiers: Atrial fibrillation type: persistent (not longstanding) Qualified Code(s): I48.19 - Other persistent atrial fibrillation (3) E. coli UTI (urinary tract infection): (4) Urinary tract infection: Qualifiers: Hematuria presence: without hematuria Urinary tract infection type: acute cystitis Qualified Code(s): N30.00 - Acute cystitis without hematuria (5) Hypomagnesemia: (6) Tachycardia: (7) Hemiplegia of left nondominant side as late effect of cerebral infarction: Qualifiers: Hemiplegia type: flaccid Qualified Code(s): I69.354 - Hemiplegia and hemiparesis following cerebral infarction affecting left non-dominant side (8) Hypertension: Qualifiers: Hypertension type: primary hypertension Qualified Code(s): I10 - Essential (primary) hypertension (9) Diabetes: Qualifiers: Diabetes mellitus type: type 2 Diabetes mellitus terminal operator insulin use: with terminal operator use Diabetes mellitus complication status: with hyperglycemia Qualified Code(s): E11.65 - Type 2 diabetes mellitus with hyperglycemia; 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 (10) History of CVA (cerebrovascular accident): Plan Echo Ordered Sodium Chloride 500 mls Bolus Sodium Chloride 1,000 mls @ 100 mls/hr IV CONT Amlodipine Besylate 5 mg PO BID Atorvastatin Calcium 80 mg PO BEDTIME Buspirone Hcl 7.5 mg PO BID Cilostazol 100 mg PO BID Clonidine Hcl (1) each Topical Q7D Clopidogrel Bisulfate 75 mg PO DAILY Ezetimibe 10 mg PO DAILY Pantoprazole Sodium 40 mg PO DAILY Apixaban 5 mg PO BID Glimepiride 4 mg PO BIDWM Magnesium Oxide 400 mg PO ONCE Fall Risk Details Hussein Fall Scale Risk Level: Moderate Fall Risk Current Medications: Current Medications Acetaminophen (Acetaminophen 500 Mg Tablet) 500 mg PO Q6H PRN PRN Reason: Pain Last Admin: 11/12/24 20:16 Dose: 500 mg Amlodipine Besylate (Amlodipine Besylate 5 Mg Tablet) 5 mg PO BID [facility] Last Admin: 11/14/24 12:20 Dose: 5 mg Apixaban (Apixaban 2.5 Mg Tablet) 5 mg PO BID [facility] Atorvastatin Calcium (Atorvastatin Calcium 40 Mg Tablet) 80 mg PO BEDTIME [facility] Bisacodyl (Bisacodyl 10 Mg Supp.Rect) 10 mg [place] DAILY PRN PRN Reason: Constipation Buspirone HCl (Buspirone Hcl 5 Mg Tablet) 7.5 mg PO BID [facility] Carvedilol (Carvedilol 25 Mg Tablet) 12.5 mg PO BID [facility] Last Admin: 11/14/24 09:40 Dose: 12.5 mg Cilostazol (Cilostazol 100 Mg Tablet) 100 mg PO BID [facility] Last Admin: 11/14/24 12:20 Dose: 100 mg Clonidine HCl (Clonidine 0.3mg/24hr Patch.Tdwk) 1 each TOPICAL Q7D [facility] Last Admin: 11/14/24 12:20 Dose: 1 each Clopidogrel Bisulfate (Clopidogrel Bisulfate 75 Mg Tablet) 75 mg PO DAILY [facility] Last Admin: 11/14/24 12:20 Dose: 75 mg Ezetimibe (Ezetimibe 10 Mg Tablet) 10 mg PO DAILY [facility] Last Admin: 11/14/24 12:20 Dose: 10 mg Glimepiride (Glimepiride 2 Mg Tablet) 4 mg PO BIDWM [facility] Last Admin: 11/14/24 16:31 Dose: 4 mg Levofloxacin/Dextrose (Levofloxacin/D5w 500 Mg/100 Ml) 500 mg in 100 mls @ 50 mls/hr IV Q24H [facility] Last Admin: 11/14/24 16:31 Dose: 50 mls/hr Sodium Chloride (Sodium Chloride) 1,000 mls @ 100 mls/hr IV CONT [facility] Last Admin: 11/14/24 16:29 Dose: 100 mls/hr Magnesium Hydroxide (Magnesium, Aluminum Hydroxide 30 Ml Oral.Susp) 30 ml PO DAILY PRN PRN Reason: gerd Pantoprazole Sodium (Pantoprazole Sodium 40 Mg Tablet.Dr) 40 mg PO DAILY [facility] Last Admin: 11/14/24 12:20 Dose: 40 mg Tramadol HCl (Tramadol Hcl 50 Mg Tablet) 50 mg PO Q8H PRN PRN Reason: Pain Last Admin: 11/13/24 19:44 Dose: 50 mg Time Spent With Patient Time: Total time spent is greater than 50% in coordination of care (as documented) at patient's floor/unit and/or counseling patient:
[2024-11-15] MEDS: POTASSIUM CHLORIDE 20 MEQ TAB.ER.PRT PO ONE (09:43)
[2024-11-15] MEDS: MAGNESIUM OXIDE 400 MG TABLET PO ONE (09:44)
--- NOTE | 2024-11-15 15:10 | Progress Note ---
Progress Note: Subjective Subjective Interval history: Day three of hospital stay, patient is experiencing episodes of A-Fib with RVR; adding Digoxin 500 mcg IVP ONCE and Digoxin 250 mcg PO ONCE. Routine morning lab work reflects patient is hypokalemic with a potassium of 3.4, hyperglycemic with a glucose of 151, hypocalcemic of 8.3, hypomagnesemic of 1.5, elevated BN- Peptide of 336.0, and hypoalbuminemic of 2.9, and anemic with a hemoglobin of 9.1. Potassium Chloride and Magnesium Oxide replaced. Exam Exam: Patient laying in low pratt's position upon entering room for exam. Constitutional: abnormal general appearance (chronically ill), no apparent distress, abnormal body habitus (obese), limitations noted (altered mental status) (intermittently) and alert Vital Signs - 24 hr 11/14/24 20:00 11/14/24 21:47 11/14/24 23:04 Temperature Pulse Rate 134 H 134 H Pulse Rate [Apical ] 133 H Pulse Rate [Left D orsalis Pedis] Pulse Rate [Left] Respiratory Rate Blood Pressure [Ri t Arm] Pulse Oximetry Oxygen Delivery Me thod 11/14/24 23:05 11/15/24 00:00 11/15/24 04:00 Temperature 98.5 F Pulse Rate 122 H Pulse Rate [Apical ] Pulse Rate [Left D orsalis Pedis] 94 H Pulse Rate [Left] 114 H Respiratory Rate 18 18 Blood Pressure [Ri ght Arm] 126/78 119/73 Pulse Oximetry 95 95 Oxygen Delivery Me thod Room Air 11/15/24 08:00 11/15/24 12:00 Temperature 98.3 F 98.1 F Pulse Rate Pulse Rate [Apical ] 134 H 95 H Pulse Rate [Left D orsalis Pedis] Pulse Rate [Left] Respiratory Rate 19 19 Blood Pressure [Ri ght Arm] 152/71 142/66 Pulse Oximetry 94 L 92 L Oxygen Delivery Me thod Room Air Room Air HENMT: normocephalic, head/scalp atraumatic, hearing grossly normal bilaterally, external ears normal, EACs normal, nasal mucous membranes normal, external nose normal, oral mucous membranes normal and oropharynx normal Eyes: PERRL, EOMs intact bilaterally, conjunctivae normal, no scleral icterus and no papilledema Neck/C-Spine: visual inspection normal, trachea midline and cervical full ROM noted Lymph: no lymphadenopathy noted Chest: inspection of chest normal and palpation of chest normal Respiratory: breath sounds equal bilaterally, normal respiratory effort, clear to auscultation bilaterally, no wheezes, no rales, no retractions, no use of accessory muscles and chest percussion normal Cardiovascular: normal heart rate noted, regular rhythm noted, no gallop, no rub, no murmur, no JVD, no clicks, peripheral pulses 2+ throughout, no bruits noted and no additional abnormal heart sounds Gastrointestinal: abdomen normal to inspection, abdomen soft to palpation, nontender to palpation, nontender to percussion, nondistended, normoactive bowel sounds, no hepatosplenomegaly, no masses, no pulsatile mass, no ascites and no hernia Genitourinary: no CVA tenderness Back/Pelvis: spine normal to inspection, thoracic spine ROM normal and lumbar spine ROM normal Extremities: abnormal to inspection, normal to palpation, no tenderness and full ROM (for pt, 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) 1+ pitting edema of BLE and LUE with LEF T>right 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, no movement abnormality noted (normal for patient hx of CVA with left sided weakness from CVA), no focal motor deficit noted (normal for patient hx of CVA with left sided weakness from CVA), no sensory deficits noted, gait normal (normal for patient hx of CVA with left sided weakness from CVA), speech normal, coordination normal (normal for patient hx of CVA with left sided weakness from CVA), no pronator drift noted, no fasciculations noted and GCS normal Psychiatry: mental status grossly normal, oriented x3, thought process normal, cooperative, affect normal and memory normal Skin: skin color normal Progress Note: Objective Labs Labs: CBC WBC 8.3 K/uL (4.3-9.3) 11/15/24 04:16 RBC 3.0 M/uL (4.00-5.50) L 11/15/24 04:16 Hgb 9.1 gm/dL (12.5-15.8) L 11/15/24 04:16 Hct 26.1 % (35.9-46.7) L 11/15/24 04:16 MCV 88.3 fl (81.0-93.7) 11/15/24 04:16 MCH 30.7 pg (27.6-32.2) 11/15/24 04:16 MCHC 34.7 g/dl (33.1-35.3) 11/15/24 04:16 RDW 16.5 % (11.4-14.2) H 11/15/24 04:16 Plt Count 340 K/uL (152-353) 11/15/24 04:16 MPV 8.0 fl (6.9-10.8) 11/15/24 04:16 Gran % 56.3 % (47.8-71.3) 11/15/24 04:16 Lymph % (Auto) 22.6 % (20.0-43.0) 11/15/24 04:16 [place] % (Auto) 11.4 % (3.6-9.8) H 11/15/24 04:16 Eos % (Auto) 8.6 % (0.4-2.8) H 11/15/24 04:16 Baso % (Auto) 1.1 (0.1-0.85) H 11/15/24 04:16 Lymph # (Auto) 1.9 (1.1-3.1) 11/15/24 04:16 [place] # (Auto) 0.9 (1.1-3.1) L 11/15/24 04:16 Eos # (Auto) 0.7 (0.0-0.2) H 11/15/24 04:16 Baso # (Auto) 0.1 (0.0-0.1) 11/15/24 04:16 Absolute Gran (auto) 4.7 (2.3-6.0) 11/15/24 04:16 BMP Sodium 136 mmol/L (136-145) 11/15/24 04:16 Potassium 3.4 mmol/L (3.6-5.2) L 11/15/24 04:16 Chloride 99.0 mmol/L (98-107) 11/15/24 04:16 Carbon Dioxide 30 mmol/L (21-32) 11/15/24 04:16 Anion Gap 7.0 mEq/L (4-14) 11/15/24 04:16 BUN 11 mg/dL (7-18) 11/15/24 04:16 Creatinine 1.2 mg/dL (0.6-1.3) 11/15/24 04:16 Estimated GFR 44.6 (>59.9) 11/15/24 04:16 Glucose 151 mg/dL (70-110) H 11/15/24 04:16 Calcium 8.3 mg/dL (8.5-10.1) L 11/15/24 04:16 Phosphorus 3.4 mg/dL (2.5-4.9) 11/15/24 04:16 Magnesium 1.5 mg/dL (1.8-2.4) L 11/15/24 04:16 Total Bilirubin 0.67 mg/dL (0.0-1.0) 11/15/24 04:16 AST 20 U/L (15-37) 11/15/24 04:16 ALT 17 U/L (30-65) L 11/15/24 04:16 Alkaline Phosphatase 80 U/L (50-136) 11/15/24 04:16 Total Protein 7.0 g/dL (6.4-8.2) 11/15/24 04:16 Albumin 2.9 g/dL (3.4-5.0) L 11/15/24 04:16 Cardiac Enzymes Troponin I High Sens 6.10 ng/L (4.0-60.4) 11/12/24 12:05 Liver Function Total Bilirubin 0.67 mg/dL (0.0-1.0) 11/15/24 04:16 AST 20 U/L (15-37) 11/15/24 04:16 ALT 17 U/L (30-65) L 11/15/24 04:16 Alkaline Phosphatase 80 U/L (50-136) 11/15/24 04:16 Total Protein 7.0 g/dL (6.4-8.2) 11/15/24 04:16 Albumin 2.9 g/dL (3.4-5.0) L 11/15/24 04:16 Urine Urine Color Yellow (STRAW/YELL.) 11/12/24 12:00 Urine Appearance Cloudy (CLEAR) 11/12/24 12:00 Ur Specific [place] 1.020 (1.001-1.035) 11/12/24 12:00 Urine Protein Trace (NEGATIVE) 11/12/24 12:00 Urine Glucose (UA) Normal (NORMAL) 11/12/24 12:00 Urine Ketones Negative (NEGATIVE) 11/12/24 12:00 Urine Occult Blood Negative (NEG - TRACE) 11/12/24 12:00 Urine Nitrite Positive (NEGATIVE) 11/12/24 12:00 Urine Bilirubin Negative (NEGATIVE) 11/12/24 12:00 Urine Urobilinogen Normal (NORMAL) 11/12/24 12:00 Ur Leukocyte Esterase Positive (NEGATIVE) 11/12/24 12:00 Progress Note: A&P Assessment and Plan (1) Sepsis: Qualifiers: Sepsis type: sepsis due to unspecified organism Sepsis acute organ dysfunction status: without acute organ dysfunction Qualified Code(s): A41.9 - Sepsis, unspecified organism (2) Atrial fibrillation: Qualifiers: Atrial fibrillation type: persistent (not longstanding) Qualified Code(s): I48.19 - Other persistent atrial fibrillation (3) E. coli UTI (urinary tract infection): (4) Urinary tract infection: Qualifiers: Urinary tract infection type: acute cystitis Hematuria presence: without hematuria Qualified Code(s): N30.00 - Acute cystitis without hematuria (5) Hypomagnesemia: (6) Tachycardia: (7) Hemiplegia of left nondominant side as late effect of cerebral infarction: Qualifiers: Hemiplegia type: flaccid Qualified Code(s): I69.354 - Hemiplegia and hemiparesis following cerebral infarction affecting left non-dominant side (8) Hypertension: Qualifiers: Hypertension type: primary hypertension Qualified Code(s): I10 - Essential (primary) hypertension (9) Diabetes: Qualifiers: Diabetes mellitus type: type 2 Diabetes mellitus mcfp insulin use: with mcfp use Diabetes mellitus complication status: with hyperglycemia Qualified Code(s): E11.65 - Type 2 diabetes mellitus with hyperglycemia; Z79.4 - correction (current) use of insulin (10) History of CVA (cerebrovascular accident): Plan Digoxin 500 mcg IVP ONCE Digoxin 250 mcg PO ONCE Potassium Chloride 40 meq PO ONCE Magnesium Oxide 800 mg PO ONCE Fall Risk Details Hussein Fall Scale Risk Level: Moderate Fall Risk Current Medications: Current Medications Acetaminophen (Acetaminophen 500 Mg Tablet) 500 mg PO Q6H PRN PRN Reason: Pain Last Admin: 11/12/24 20:16 Dose: 500 mg Amlodipine Besylate (Amlodipine Besylate 5 Mg Tablet) 5 mg PO BID [facility] Last Admin: 11/15/24 09:44 Dose: 5 mg Apixaban (Apixaban 2.5 Mg Tablet) 5 mg PO BID [facility] Last Admin: 11/15/24 09:44 Dose: 5 mg Atorvastatin Calcium (Atorvastatin Calcium 40 Mg Tablet) 80 mg PO BEDTIME [facility] Last Admin: 11/14/24 23:03 Dose: 80 mg Bisacodyl (Bisacodyl 10 Mg Supp.Rect) 10 mg [place] DAILY PRN PRN Reason: Constipation Buspirone HCl (Buspirone Hcl 5 Mg Tablet) 7.5 mg PO BID [facility] Last Admin: 11/15/24 09:43 Dose: 7.5 mg Carvedilol (Carvedilol 25 Mg Tablet) 12.5 mg PO BID [facility] Last Admin: 11/15/24 09:44 Dose: 12.5 mg Cilostazol (Cilostazol 100 Mg Tablet) 100 mg PO BID [facility] Last Admin: 11/15/24 09:43 Dose: 100 mg Clonidine HCl (Clonidine 0.3mg/24hr Patch.Tdwk) 1 each TOPICAL Q7D [facility] Last Admin: 11/14/24 12:20 Dose: 1 each Clopidogrel Bisulfate (Clopidogrel Bisulfate 75 Mg Tablet) 75 mg PO DAILY [facility] Last Admin: 11/15/24 09:43 Dose: 75 mg Digoxin (Digoxin 250 Mcg/Ml Ampul) 500 mcg IVP ONCE [facility] Last Admin: 11/15/24 11:46 Dose: 500 mcg Digoxin (Digoxin 125 Mcg Tablet) 250 mcg PO ONCE [facility] Ezetimibe (Ezetimibe 10 Mg Tablet) 10 mg PO DAILY [facility] Last Admin: 11/15/24 09:44 Dose: 10 mg Glimepiride (Glimepiride 2 Mg Tablet) 4 mg PO BIDWM [facility] Last Admin: 11/15/24 07:02 Dose: 4 mg Levofloxacin/Dextrose (Levofloxacin/D5w 500 Mg/100 Ml) 500 mg in 100 mls @ 50 mls/hr IV Q24H [facility] Last Admin: 11/14/24 16:31 Dose: 50 mls/hr Magnesium Hydroxide (Magnesium, Aluminum Hydroxide 30 Ml Oral.Susp) 30 ml PO DAILY PRN PRN Reason: gerd Pantoprazole Sodium (Pantoprazole Sodium 40 Mg Tablet.Dr) 40 mg PO DAILY [facility] Last Admin: 11/15/24 09:44 Dose: 40 mg Tramadol HCl (Tramadol Hcl 50 Mg Tablet) 50 mg PO Q8H PRN PRN Reason: Pain Last Admin: 11/13/24 19:44 Dose: 50 mg Time Spent With Patient Time: Total time spent is greater than 50% in coordination of care (as documented) at patient's floor/unit and/or counseling patient:
[2024-11-15] MEDS: DIGOXIN 125 MCG TABLET PO ONE (22:12)
[2024-11-16] MEDS: DIGOXIN 125 MCG TABLET ONE (00:29)
[2024-11-16 05:15] LABS: Basophils #(Absolute) Auto 0.1 (0.0-0.1); Eosinophils#(Absolute)Auto 1.1 (0.0-0.2); Eosinophils%(Percent) Auto 12.3 % (0.4-2.8); Granulocytes#(Absolute)- Auto 4.9 (2.3-6.0); Hematocrit 25.4 % (35.9-46.7); Mean Corpuscular Volume 89.4 fl (81.0-93.7); Monocytes #(Absolute)- Auto 0.9 (1.1-3.1); Monocytes %(Percent)- Auto 10.4 % (3.6-9.8); Platelet Count 311 K/uL (152-353); White Blood Count 8.8 K/uL (4.3-9.3)
[2024-11-16 05:38] LABS: Potassium 3.8 mmol/L (3.6-5.2)
[2024-11-16] MEDS: DIGOXIN 125 MCG TABLET PO ONE (11:14)
[2024-11-16 13:24] VITALS: BP 141/54; PULSE 75; RESP 20; TEMP 97.8
--- NOTE | 2024-11-16 14:26 | Discharge Summary ---
DS: Providers Provider Date of admission: 11/12/24 14:53 Primary care physician: Yolie Muniz NP Admitting clinician: Eliane Monroy Attending physician on admission: Grover Cuba Attending physician on discharge: Elina Quiroz Discharging clinician: Elina Quiroz Anticipated date of discharge: 11/16/24 DS: Diagnosis Discharge Diagnosis (1) Sepsis: Qualifiers: Sepsis type: sepsis due to unspecified organism Sepsis acute organ dysfunction status: without acute organ dysfunction Qualified Code(s): A41.9 - Sepsis, unspecified organism (2) Atrial fibrillation: Qualifiers: Atrial fibrillation type: persistent (not longstanding) Qualified Code(s): I48.19 - Other persistent atrial fibrillation (3) E. 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 DS: Summary Hospital Course Hospital Course: Admitted from home via ER due to worsening swelling of her LEFT arm and leg. Had stroke with hemiplegia affecting her left side before 2023. Has been noticing the increased edema this week with dyspnea. ER found her to be in CHF exacerbation and fighting a UTI. Daughter and patient report she seems to be doing better today. Still not back to her new baseline. Nurses report very good UOP, but not accurately recorded. Day two of hospital stay, nurse reports patient has been hallucinating at times, thinks her brother is under her bed and verbalizes she is having a seizure. Nursing staff reports she has not had a seizure but thinks she is, she has called her family through the night to tell them she is currently having a seizure. Patient has been going in and out of A-Fib since admission to the med/surg floor. Urine culture shows UTI with E.Coli. Day three of hospital stay, patient is experiencing episodes of A-Fib with RVR; adding Digoxin 500 mcg IVP ONCE and Digoxin 250 mcg PO ONCE. Routine morning lab work reflects patient is hypokalemic with a potassium of 3.4, hyperglycemic with a glucose of 151, hypocalcemic of 8.3, hypomagnesemic of 1.5, elevated BN- Peptide of 336.0, and hypoalbuminemic of 2.9, and anemic with a hemoglobin of 9.1. Potassium Chloride and Magnesium Oxide replaced. Day four of hospital stay, patient has heart rate has improved with the addition to Digoxin. A-Fib is still present at this time. Patient is ready to discharge home for self care. Follow up with Cardiology will be kept for 11/20/24. Post hospital follow up appointment with PCP in 5-7 days of discharge. Provider recommends PCP check Dig level at that time. Status at Discharge Overall status at discharge: patient is back to baseline Time Spent with Patient Time attestation: Total time spent providing and/or coordinating discharge services: Exam Exam: Patient laying in low pratt's position upon entering room for exam. Family member at bedside. Constitutional: abnormal general appearance (chronically ill), no apparent distress, abnormal body habitus (obese), limitations noted (altered mental status) (intermittently) and alert Vital Signs - 24 hr 11/15/24 15:04 11/15/24 16:00 11/15/24 20:00 Temperature 98.1 F 97.7 F Pulse Rate 96 H Pulse Rate [Apical ] 69 91 H Pulse Rate [Left D orsalis Pedis] 91 H Pulse Rate [Left] 91 H Respiratory Rate 19 17 Blood Pressure Blood Pressure [Ri ght Arm] 137/83 148/50 Pulse Oximetry 97 93 L Oxygen Delivery Me thod Room Air Room Air 11/15/24 22:11 11/15/24 22:12 11/15/24 22:12 Temperature Pulse Rate 91 H 91 H Pulse Rate [Apical ] Pulse Rate [Left D orsalis Pedis] Pulse Rate [Left] Respiratory Rate Blood Pressure 148/50 148/50 148/50 Blood Pressure [Ri ght Arm] Pulse Oximetry Oxygen Delivery Me thod 11/15/24 23:46 11/16/24 04:00 11/16/24 09:50 Temperature 98.3 F 98.0 F Pulse Rate 80 Pulse Rate [Apical ] 74 75 Pulse Rate [Left D orsalis Pedis] 74 75 Pulse Rate [Left] 74 75 Respiratory Rate 16 19 Blood Pressure 114/54 Blood Pressure [Ri ght Arm] 110/68 165/71 Pulse Oximetry 97 98 Oxygen Delivery Me thod Room Air Room Air 11/16/24 09:51 11/16/24 11:14 11/16/24 12:00 Temperature 97.8 F Pulse Rate 80 Pulse Rate [Apical ] 75 Pulse Rate [Left D orsalis Pedis] Pulse Rate [Left] Respiratory Rate 20 Blood Pressure 114/54 Blood Pressure [Ri ght Arm] 141/54 Pulse Oximetry 94 L Oxygen Delivery Me thod Room Air HENMT: normocephalic, head/scalp atraumatic, hearing grossly normal bilaterally, external ears normal, EACs normal, nasal mucous membranes normal, external nose normal, oral mucous membranes normal and oropharynx normal Eyes: PERRL, EOMs intact bilaterally, conjunctivae normal, no scleral icterus and no papilledema Neck/C-Spine: visual inspection normal, trachea midline and cervical full ROM noted Lymph: no lymphadenopathy noted Chest: inspection of chest normal and palpation of chest normal Respiratory: breath sounds equal bilaterally, normal respiratory effort, clear to auscultation bilaterally, no wheezes, no rales, no retractions, no use of accessory muscles and chest percussion normal Cardiovascular: normal heart rate noted, rhythm abnormal (irregular) (A-Fib), no gallop, no rub, no murmur, no JVD, no clicks, peripheral pulses 2+ throughout, no bruits noted and no additional abnormal heart sounds Gastrointestinal: abdomen normal to inspection, abdomen soft to palpation, nontender to palpation, nontender to percussion, nondistended, normoactive bowel sounds, no hepatosplenomegaly, no masses, no pulsatile mass, no ascites and no hernia Genitourinary: no CVA tenderness Back/Pelvis: spine normal to inspection, thoracic spine ROM normal and lumbar spine ROM normal Extremities: abnormal to inspection, normal to palpation, no tenderness and full ROM (for pt, 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) 1+ pitting edema of BLE and LUE with LEF T>right Neurology: meringuer II-XII intact, no movement abnormality noted (normal for patient hx of CVA with left sided weakness from CVA), no focal motor deficit noted (normal for patient hx of CVA with left sided weakness from CVA), no sensory deficits noted, gait normal (normal for patient hx of CVA with left sided weakness from CVA), speech normal, coordination normal (normal for patient hx of CVA with left sided weakness from CVA), no pronator drift noted, no fasciculations noted and GCS normal Psychiatry: mental status grossly normal, oriented x3, thought process normal, cooperative, affect normal and memory normal Skin: skin color normal DS: Data Data Completed and Pending Labs on day of discharge: Labs from last 24 hours 11/16/24 11/16/24 11/16/24 08:25 05:00 04:51 WBC 8.8 RBC 2.8 L Hgb 8.7 L Hct 25.4 L MCV 89.4 MCH 30.8 MCHC 34.4 RDW 16.4 H Plt Count 311 MPV 7.8 Gran % 56.0 Lymph % (Auto) 20.3 [place] % (Auto) 10.4 H Eos % (Auto) 12.3 H Baso % (Auto) 1.0 H Lymph # (Auto) 1.8 [place] # (Auto) 0.9 L Eos # (Auto) 1.1 H Baso # (Auto) 0.1 Absolute Gran (auto) 4.9 Sodium 140 Potassium 3.8 Chloride 102.0 Carbon Dioxide 29 Anion Gap 9.0 BUN 19 H Creatinine 1.4 H Estimated GFR 37.1 Glucose 113 H Calcium 8.2 L Phosphorus 4.2 Magnesium 1.8 Total Bilirubin 0.54 AST 18 ALT 14 L Alkaline Phosphatase 74 B-Natriuretic Peptide 183.0 H Total Protein 6.6 Albumin 2.9 L Digoxin 1.61 Imaging Chest x-ray: Radiologist's impression: XR CHEST 1V Date of Service: 11/12/24 HISTORY: Chest pain COMPARISON: 12/29/2023 FINDINGS: The trachea is midline. The cardiac silhouette is enlarged with a tortuous thoracic aorta . The lungs are clear without focal infiltrate or effusion. The bony thorax is unremarkable. IMPRESSION: No acute cardiopulmonary disease. Discharge Plan Discharge Disposition: Home, Self-Care Condition: Improved Discharge Medications: New Eliquis 2.5 mg Tablet 5 mg PO BID Qty: 90 0RF Rx Instructions: after 14 days change to 1 po bid digoxin [Lanoxin] 125 mcg (0.125 mg) Tablet 250 mcg PO DAILY Qty: 30 0RF losartan 50 mg tablet 50 mg PO DAILY Qty: 30 0RF famotidine [Pepcid] 40 mg tablet 40 mg PO BID Qty: 30 0RF Continued cilostazol 100 mg tablet 100 mg PO BID atorvastatin 80 mg tablet 80 mg PO BEDTIME carvedilol 12.5 mg tablet 12.5 mg PO BID glipizide 10 mg tablet 10 mg PO BIDWM clopidogrel 75 mg tablet 75 mg PO DAILY amlodipine 5 mg tablet 5 mg PO BID amitriptyline 25 mg tablet 25 mg PO BEDTIME buspirone 7.5 mg tablet 7.5 mg PO BID ezetimibe 10 mg tablet 10 mg PO DAILY meloxicam 15 mg tablet 15 mg PO DAILY labetalol 100 mg tablet Januvia 25 mg tablet insulin degludec [Tresiba FlexTouch U-200] 200 unit/mL (3 mL) insulin pen SUBCUT Discontinued hydralazine 100 mg tablet clonidine 0.3 mg/24 hr patch weekly 1 patch topical Q7D Discharge Orders: Discharge Order (Routine); Ordered 11/16/24 Ordered By: Elina Quiroz Activity: as per physical therapy and increase activity as tolerated Diet: diabetic diet and low fat, low cholesterol Interventions: Discharge Assessment Last Done: 11/16/24 13:43 MED/SURG & ICU Observation Charge Sheet Last Done: 11/16/24 13:45 Patient Instructions: Heart Failure (DC), A-fib (Atrial Fibrillation) (GEN) Activity Restrictions/Additional Instructions: follow up cardiology new onset a. fib and poorly controlled htn wants to See Dr George for cardiology and had a stent placed a year ago follow up PCP in 3-7 days and if chest pain or concerns or shortness of breath return to the ER or PCP as appropiate BP and pulse and BS journal to carry to her follow up appointments daily weights and give measurements to PCP on follow up if gain or loose 5 pounds then patient can let her PCP know for directions Forms: Portal/Health Info Access Inst Follow-Ups: Yolie Muniz NP [Primary Care Provider] - 11/23/24 10:30 am (PATIENT HAS FOLLOW UP APPOINTMENT WITH JOSH NAVA ON 11/20/2024)
== END 2024-11-16 15:20 | disposition home or self-care (01) | DRG 872 ==
LOC: ED 11:29 → MS 11:29 → OBSVTOIN 14:53 → MS 15:50
PROVIDERS: ADMIT Family Medicine; ATTEND Family Medicine
DX: I50.9 Heart failure, unspecified; R00.0 Tachycardia, unspecified; E11.65 Type 2 diabetes mellitus with hyperglycemia; I11.0 Hypertensive heart disease with heart failure; R06.09 Other forms of dyspnea; N39.0 Urinary tract infection, site not specified; R60.0 Localized edema; I69.354 Hemiplegia and hemiparesis following cerebral infarction affecting left non-dominant side; K21.9 Gastro-esophageal reflux disease without esophagitis; Z79.4 Long term (current) use of insulin; R07.89 Other chest pain; A41.9 Sepsis, unspecified organism; R09.02 Hypoxemia; E83.42 Hypomagnesemia; I48.19 Other persistent atrial fibrillation; B96.20 Unspecified Escherichia coli [E. coli] as the cause of diseases classified elsewhere